=== PATIENT | female | born 1945 | race Caucasian/White ===

== ENCOUNTER 2021-03-08 06:43 | Inpatient (IN) ==
[2021-03-08] MEDS ORDERED: *HR* Vasopressin 20 UNIT/ML VIAL ONE (07:19)
[2021-03-08] MEDS ORDERED: NiCARdipine 2.5 MG/10 ML Syringe IVPB ONE (07:19)
[2021-03-08] MEDS ORDERED: Acetaminophen IV 1,000 MG/100 ML BAG IVPB ONE ×2 (07:19→07:39)
[2021-03-08] MEDS ORDERED: *HR* FentaNYL (PF) 100 MCG/2 ML VIAL ONE ×2 (07:22→09:53)
[2021-03-08] MEDS ORDERED: *HR* Propofol 200 MG/20 ML VIAL IVP ONE (07:22)
[2021-03-08] MEDS ORDERED: Lidocaine -MPF 2% 5 ML VIAL ONE (07:23)
[2021-03-08] MEDS ORDERED: *HR* Rocuronium Bromide 50 MG/5 ML VIAL ONE ×2 (07:23→09:44)
[2021-03-08] MEDS ORDERED: *HR* Succinylcholine 200 MG/10 ML VIAL IVP ONE (07:23)
[2021-03-08] MEDS ORDERED: Ondansetron 4 MG/2 ML VIAL ONE (07:23)
[2021-03-08] MEDS ORDERED: *HR* Phenylephrine 10 MG/ML VIAL ONE (07:25)
[2021-03-08] MEDS ORDERED: Lidocaine HCL 4 ML Topical Solution (Laryng-O-Jet Kit Sterile Pak) TP ONE (07:26)
[2021-03-08] MEDS ORDERED: Heparin 1,000 UNITS/500 mL 0 ML ONE (07:30)
[2021-03-08] MEDS ORDERED: CeFAZolin Syr 2,000MG/20 ML 2,000 MG/20 ML SYRINGE IVPB ONE (07:32)
[2021-03-08] MEDS ORDERED: *HR* HYDROmorphone (PF) 1 MG/ML SYRINGE IVP PRN (07:39)
[2021-03-08] MEDS ORDERED: Famotidine 20 MG/2 ML VIAL IVP ONE (07:39)
[2021-03-08] MEDS ORDERED: *HR* OxyCODONE Immed Rel 5 MG TABLET PO PRN ×2 (07:39→13:09)
[2021-03-08] MEDS ORDERED: *HR* HYDROmorphone 2 MG TABLET PO PRN (07:39)
[2021-03-08] MEDS ORDERED: *HR* Labetalol 20 MG/4 ML SYRINGE IVP PRN ×2 (07:39→13:09)
[2021-03-08] MEDS ORDERED: Heparin 1,000 UNITS/500 mL 2,000 ML ONE (07:44)
[2021-03-08] MEDS ORDERED: Ringers Solution, Lactated 1,000 ML IVC SCH (07:45)
[2021-03-08] MEDS ORDERED: Ipratropium/Albuterol Neb 3 ML IH ONE (07:49)
[2021-03-08] MEDS ORDERED: ceFAZolin 1,000 MG, Sodium Chloride IRRigation 1,000 ML IR ONE (08:15)
[2021-03-08] MEDS ORDERED: methylPREDNISolone 125 MG/2 ML VIAL IVP ONE (08:17)
[2021-03-08] MEDS ORDERED: EPHEDrine 50 MG/ML VIAL ONE (09:38)
[2021-03-08] MEDS ORDERED: *HR* Heparin 5,000 UNIT/ML VIAL ONE (09:44)
[2021-03-08] MEDS ORDERED: Sugammadex Sodium 200 MG/2 ML VIAL IV ONE (11:13)
[2021-03-08] MEDS ORDERED: Ondansetron 4 MG/2 ML VIAL IVP PRN (13:09)
[2021-03-08] MEDS ORDERED: Acetaminophen 325 MG TABLET PO PRN (13:09)
[2021-03-08] MEDS ORDERED: 0.9 % Sodium Chloride 1,000 ML IVC SCH (13:09)
[2021-03-08] MEDS ORDERED: Naloxone 0.4 MG/ML INJ IVP PRN (13:09)
[2021-03-08] MEDS: CeFAZolin 2,000 MG/120 ML BAG IVPB SCH ×2 (15:07→23:35)
[2021-03-08] MEDS: 0.9 % Sodium Chloride 1,000 ML IVC SCH (20:00)
[2021-03-08] MEDS ORDERED: Temazepam 15 MG CAPSULE PO SCH (21:00)
[2021-03-08] MEDS: Azelastine 0.1% Nasal Spray 30 ML BOTTLE NS SCH (23:36)
[2021-03-09 02:34] LABS: Mean Corpuscular Volume 100.6 fL (83.0-100.0)
[2021-03-09 02:35] LABS: Hematocrit 32.3 % (35.3-44.9); Hemoglobin 10.3 g/dL (11.5-15.4); Immature Platelets 5.4 % (1.1-6.1); Mean Corpuscular HGB Conc 31.9 g/dL (31.6-35.5); Mean Corpuscular Hemoglobin 32.1 pg (28.0-33.3); Mean Platelet Volume 10.8 fL (9.4-12.4); Red Blood Count 3.21 M/mcL (3.82-4.97); Red Cell Distribution Width 12.9 % (11.5-14.5); White Blood Count 5.2 K/mcL (4.3-11.1)
[2021-03-09 02:59] LABS: Calcium 8.4 mg/dL (8.6-10.3); Potassium 4.5 mEq/L (3.5-5.1)
[2021-03-09] MEDS: Azelastine 0.1% Nasal Spray 30 ML BOTTLE NS SCH (08:13)
[2021-03-09] MEDS: CeFAZolin 2,000 MG/120 ML BAG IVPB SCH (08:14)
[2021-03-09] MEDS: 0.9 % Sodium Chloride 1,000 ML IVC SCH (08:16)
[2021-03-09] MEDS ORDERED: Pregabalin 50 MG CAPSULE PO SCH (09:00)
[2021-03-09] MEDS ORDERED: Fluticasone Propionate Nasal 50 MCG/SPRAY BOTTLE NS SCH (09:00)
[2021-03-09 11:13] VITALS: PULSE 69; TEMP 99.1; O2SAT 95
[2021-03-09 11:14] VITALS: BP 117/51
[2021-03-10] MEDS ORDERED: Cyanocobalamin (B-12) 1,000 MCG TABLET PO SCH (09:00)
== END 2021-03-09 14:22 | disposition home or self-care (01) | DRG 269 ==
LOC: SAMDAY 06:43 → 2NNU 13:01
PROVIDERS: ADMIT Surgery Vascular Surgery; ATTEND Surgery Vascular Surgery